=== PATIENT | male | born 1955 | race Caucasian/White ===

== ENCOUNTER → 2019-02-26 | Outpatient (CLI) | payer MEDICARE, MEDICAID ==
[2019-02-26 12:00] LABS: ALBUMIN 4.6 gm/dL (3.5-5.0); BILIRUBIN,TOTAL 0.8 mg/dL (0.0-1.0); CALCIUM 9.5 mg/dL (8.4-10.2); CHOLESTEROL RISK RATIO 4.5; CREATININE, serum 0.83 (0.66-1.25); POTASSIUM 4.9 mmol/L (3.4-5.0); TOTAL PROTEIN 8.8 gm/dL (6.4-8.2)
[2019-02-27 01:36] LABS: CREATININE OTHER SOURCE 79 mg/dL (()); URINE MICROALBUMIN <0.5 mg/dL (0.0-1.7)
== END ==
LOC: COL.RAD 09:52
PROVIDERS: Family Medicine
DX: K42.9 Umbilical hernia without obstruction or gangrene (principal); E11.9 Type 2 diabetes mellitus without complications

== ENCOUNTER → 2020-02-24 | Outpatient (CLI) | payer MEDICARE, MEDICAID ==
[2020-02-24 16:55] LABS: HEMATOCRIT 40.7 % (42.0-52.0); HEMOGLOBIN 13.9 g/dl (13.5-18.0); MEAN CELL VOLUME 90 fl (80.0-100.0); MEAN CORPUSCULAR HEMOGLOBIN 31 pg (27.0-31.0); MEAN CORPUSCULAR HGB CONC 34 g/dl (33.0-37.0); MEAN PLATELET VOLUME 9.8 fl (7.4-10.4); PLATELET COUNT 253 K/mm3 (130-400); RED BLOOD COUNT 4.52 M/mm3 (4.20-5.60); REDCELL DISTRIBUTION WIDTH-CV 12.4 % (11.5-14.5)
[2020-02-24 17:20] LABS: CALCIUM 9.5 mg/dL (8.4-10.2); CREATININE, serum 0.92 (0.66-1.25); POTASSIUM 4.6 mmol/L (3.4-5.0)
== END ==
LOC: COL.LAB 16:35
PROVIDERS: Internal Medicine Interventional Cardiology
DX: I73.9 Peripheral vascular disease, unspecified (principal)

== ENCOUNTER 2021-02-08 10:30 | Outpatient (RCR) | payer MEDICARE, MEDICAID | END 2021-02-08 12:00 | disposition home or self-care (01) | LOC: WSPT 10:30 | DX: M54.5 Low back pain (principal) ==

== ENCOUNTER 2022-08-12 19:06 | Emergency (ER) | payer MEDICARE, MEDICAID ==
[~2022-08-12] VITALS: Ht 177.8 cm; Wt 131.4 kg
[2022-08-12 19:19] VITALS: PULSE 112; TEMP 102.3
[2022-08-12 20:43] LABS: BASO % 0.4 % (0.0-2.0); EOS # 0.1 K/mm3 (0.0-0.7); EOS % 0.9 % (0.0-4.0); GRAN # 4.4 K/mm3 (1.4-6.5); GRAN % 64.3 % (42.2-75.2); LYMPH # 1.1 K/mm3 (1.2-3.4); LYMPH % 15.8 % (20.0-51.0); MEAN CELL VOLUME 90 fl (80.0-100.0); MEAN CORPUSCULAR HEMOGLOBIN 31 pg (27-31); MEAN CORPUSCULAR HGB CONC 34 g/dl (33.0-37.0); MEAN PLATELET VOLUME 9.6 fl (7.4-10.4); MONO # 1.2 K/mm3 (0.1-0.6); MONO % 18.3 % (1.7-9.3); PLATELET COUNT 218 K/mm3 (130-400); RED BLOOD COUNT 4.22 M/mm3 (4.20-5.60); REDCELL DISTRIBUTION WIDTH-CV 12.7 % (11.5-14.5)
[2022-08-12 20:56] LABS: ALBUMIN 3.7 gm/dL (3.4-4.8); BILIRUBIN,TOTAL 0.4 mg/dL (0.2-1.2); CALCIUM 9.1 mg/dL (8.4-10.2); CREATININE, serum 1.34 mg/dL (0.72-1.25); POTASSIUM 4.1 mmol/L (3.5-4.5); TOTAL PROTEIN 7.5 gm/dL (6.2-8.1)
[2022-08-12 21:09] VITALS: BP 160/71
== END 2022-08-12 21:20 | disposition home or self-care (01) ==
LOC: COL.ER 19:06
PROVIDERS: Emergency Medicine Emergency Medical Services
DX: U07.1 COVID-19 (principal); R50.9 Fever, unspecified; R05.9 Cough, unspecified; R51.9 Headache, unspecified; R11.0 Nausea; Z28.310 Unvaccinated for COVID-19

== ENCOUNTER → 2022-09-26 | Day surgery (SDC) | payer MEDICARE, MEDICAID | LOC: SDCO 08-15 07:30 | DX: Z12.11 Encounter for screening for malignant neoplasm of colon (principal); Z86.010 Personal history of colon polyps; Z53.8 Procedure and treatment not carried out for other reasons ==

== ENCOUNTER 2023-03-14 10:24 | Emergency (ER) | payer MEDICARE, MEDICAID ==
[~2023-03-14] VITALS: Ht 172.7 cm; Wt 95.5 kg
[~2023-03-14 10:24] MED LIST: ASPIRIN 81M81 MG/TA2 PO; CIALIS5 MG PO; ELIQUIS 5MG PO; FLOMAX 0.40.4 MG/CAP PO; GLUCOPHAGE1000 MG PO; GLUCOTROL10 MG PO; JANUVIA50 MG PO; JARDIANCE10 PO; LIPITOR 80MG80 MG PO; MOTRIN 600600 MG/TAB PO; NEURONTIN300 MG/CAP PO; NITROSTAT0.4 MG/TAB SL; NORCO 325 MG-51 TAB PO; PEPCID40 MG PO; PLETAL50 MG PO; PRINIVIL20 MG PO
[2023-03-14 10:28] VITALS: TEMP 98.3
[2023-03-14 10:56] LABS: BASO # 0.1 K/mm3 (0.0-0.2); BASO % 0.5 % (0.0-2.0); EOS # 0.5 K/mm3 (0.0-0.7); EOS % 4.6 % (0.0-4.0); GRAN # 5.5 K/mm3 (1.4-6.5); GRAN % 55.9 % (42.2-75.2); HEMATOCRIT 44.5 % (42.0-52.0); HEMOGLOBIN 14.8 g/dl (13.5-18.0); LYMPH # 3.1 K/mm3 (1.2-3.4); LYMPH % 31.2 % (20.0-51.0); MEAN CELL VOLUME 92 fl (80.0-100.0); MEAN CORPUSCULAR HEMOGLOBIN 31 pg (27-31); MEAN CORPUSCULAR HGB CONC 33 g/dl (33.0-37.0); MEAN PLATELET VOLUME 10.1 fl (7.4-10.4); MONO # 0.7 K/mm3 (0.1-0.6); MONO % 7.6 % (1.7-9.3); PLATELET COUNT 275 K/mm3 (130-400); RED BLOOD COUNT 4.86 M/mm3 (4.20-5.60); REDCELL DISTRIBUTION WIDTH-CV 12.7 % (11.5-14.5)
[2023-03-14 11:05] LABS: ALBUMIN 3.9 gm/dL (3.4-4.8); C-REACTIVE PROTEIN 1.48 mg/dL (0.00-0.50); CALCIUM 9.6 mg/dL (8.4-10.2); CREATININE, serum 1.13 mg/dL (0.72-1.25); POTASSIUM 4.2 mmol/L (3.5-4.5); TOTAL PROTEIN 8.2 gm/dL (6.2-8.1)
[2023-03-14 11:20] LABS: BILIRUBIN,TOTAL 0.6 mg/dL (0.2-1.2)
[2023-03-14 12:08] LABS: COLLECTION METHOD CLEAN CATCH
[2023-03-14 12:51] LABS: MUCOUS Present (NOT PRESENT); PH 5.5 (5.0-8.5); URINE APPEARANCE Clear (CLEAR/HAZY); URINE BLOOD Negative (NEGATIVE); URINE COLOR Yellow (YELLOW); URINE GLUCOSE 3+ (NEGATIVE); URINE KETONE TRACE (NEGATIVE); URINE NITRATE Negative (NEGATIVE); URINE PROTEIN(semi-quant) Negative (NEGATIVE); URINE UROBILINOGEN 0.2 E.U/dL (0.2-1.0)
[2023-03-14 12:52] LABS: URINE BACTERIA None Seen /hpf (NONE SEEN)
[2023-03-14 14:14] VITALS: BP 139/75; PULSE 80
== END 2023-03-14 14:14 | disposition home or self-care (01) ==
LOC: COL.ER 10:24
PROVIDERS: Nurse Practitioner
DX: G89.18 Other acute postprocedural pain (principal); R10.31 Right lower quadrant pain
CPT/HCPCS: J1170; J2405; J7030; Q9967

== ENCOUNTER 2024-04-03 17:49 | Emergency (ER) | payer MEDICARE ==
[~2024-04-03] VITALS: Ht 172.7 cm; Wt 99.5 kg
[2024-04-03 18:31] VITALS: TEMP 98.5
[2024-04-03] MEDS ORDERED: CEPHALEXIN500 M1 PO (20:55)
[2024-04-03] MEDS ORDERED: PERCOCET 325 MG1 TA2 PO (20:55)
[2024-04-03 21:56] VITALS: BP 140/64; PULSE 75
== END 2024-04-03 22:12 | disposition home or self-care (01) ==
LOC: COL.ER 17:49
DX: S90.822A Blister (nonthermal), left foot, initial encounter (principal); X58.XXXA Exposure to other specified factors, initial encounter